=== PATIENT | male | born 1955 | race Caucasian/White ===

== ENCOUNTER 2020-08-24 10:06 | Observation (INO) ==
--- NOTE | 2020-07-23 14:08 | PAT Medication Instructions ---
Medication Instructions Date of Service July 23, 2020 Home Medications levothyroxine 88 mcg capsule 88 mcg PO QAM meloxicam 15 mg tablet 15 mg PO QAM modafinil 200 mg PO BID nutritional supplements [Benefit] 1 packet PO TID ASK your surgeon for instructions meloxicam 15 mg tablet 15 mg PO QAM DO NOT take the morning of surgery modafinil 200 mg PO BID nutritional supplements [Benefit] 1 packet PO TID Take morning of surgery With a small sip of water, OTHERWISE NOTHING TO EAT OR DRINK AFTER MIDNIGHT: levothyroxine 88 mcg capsule 88 mcg PO QAM Other Notes If you have any questions please call us at [phone] or [phone] or [phone] or [phone]
--- NOTE | 2020-07-26 13:06 | Anesthesiology Consultation ---
Date of Service July 26, 2020 Assessment & Plan (1) Encounter for pre-operative examination: COVID screening: Per assessment on 07/26: Travel screen negative, no known COVID- 19 positive contacts or current COVID-19 related symptoms. Patient was pers onally COVID positive 02/2020 ([place]). Symptoms at time of fatigue, ache, fever, loss of smell and taste > resolved. Surgeon arranging preop COVID testing. Awaiting results. Chart Review Chart Review: Acceptable Risk for Surgery and Patient seen in Pre Admission Testing Teaching & Discussion Pre-Anesthesia Teaching/Discussion Notes: Instructed NPO after midnight before surgery,except medications with 15 cc of water. Medication instructions provided according to the PAT guidelines. History Surgery Operation Date: 08/24/20 10:40 Proposed Procedures p Right Total Knee Arthroplasty - Blake Massey MD Height/Weight Height: 5 ft 11 in Weight: 71.1 kg Allergies Allergy/AdvReac Type Severity Reaction Status Date / Time No Known Allergies Allergy Verified 07/23/20 13:45 Medications Home Medications Medication Instructions Recorded Confirmed Last Taken levothyroxine 88 mcg capsule 88 mcg PO QAM 06/17/20 07/23/20 Unknown meloxicam 15 mg tablet 15 mg PO QAM 06/17/20 07/23/20 Unknown modafinil 200 mg PO BID 07/23/20 07/23/20 Unknown nutritional supplements [Benefit] 1 packet PO TID 07/23/20 07/23/20 Unknown Past Medical History Medical History Bilateral primary osteoarthritis of knee BPH (benign prostatic hyperplasia) History of COVID-19 02/2020 ([place]). Symptoms at time of fatigue, ache, fever, loss of smell and taste > resolved Hypersomnia Hypothyroidism Exercise / Class Metabolic Activity II 4-5 Yardwork/Stairs/Walk up hill (very active (no chest pain, no sob)) Past Surgical History Surgical History H/O hemorrhoids Hemorrhoids banding Hx of hernia repair Hx of tonsillectomy Hx of vasectomy Hx of vein stripping LLE Hx of wisdom tooth extraction Past Anesthesia History No Family Hx of Anesthesia Complications and Other (Vasovagal response post-op with multiple surgeries ) History of PONV No Hx of PONV and No Hx of Motion Sickness Social History Smoking Status: Never smoker Do You Dip or Chew Tobacco: No Hx Alcohol Use: No Hx Substance Use: No substance use type: does not use Review of Systems No snoring. Patient denies chest pain, shortness of breath, dyspnea on exertion, fever, chills, cough, wheezing, palpitations. Physical Exam Vital Signs VITALS BP 117/75 P 56 TEMP 98.6 SP02 98%RA RESP 16 Per patient, chronic low-normal BP/HR > asymptomatic* PHYSICAL Full cervical extension range of motion. Full TMJ range of motion. TMD 3 finger breaths Mallampati Score 2 Dentition: intact, + several crowns Lungs: clear throughout to auscultation Cardiac: regular rate and rhythm, no murmurs noted Spine: normal Carotid arteries: negative bruit Extremities: no edema Testing Laboratory Results 07/26/20 14:02 07/26/20 14:02 PT 10.6 Seconds (9.0-12.0) 07/26/20 14:02 INR 1.0 (0.9-1.1) 07/26/20 14:02 APTT 29.9 Seconds (21.0-31.0) 07/26/20 14:02 Blood Type A Positive 07/26/20 14:02 Antibody Screen NEGATIVE 07/26/20 14:02 Electrocardiogram Date: 07/26/20 SB with sinus arrhythmia at 50bpm. Rightward axis. Voltage criteria for LVH. Chest X-Ray Date: 07/26/20 FINDINGS: Lung volumes are normal. Lungs are clear. There is no pneumothorax or pleural effusion. Cardiac size is normal. Mediastinal contours are normal. There is no evidence for pulmonary edema. Incidental note is made of S shaped scol iosis of the thoracolumbar spine. IMPRESSION: No acute cardiopulmonary findings.
[2020-07-26 14:16] LABS: Basophils # (auto) 0.02 K/uL (0-0.2); Basophils % (auto) 0.4 %; Eosinophils # (auto) 0.15 K/uL (0-0.5); Eosinophils % (auto) 3.1 %; Hematocrit (blood only) 37.9 % (42-52); Hemoglobin 12.8 g/dL (14.0-18.0); Immature Granulocytes # (auto) 0.01 K/uL (0.00-0.02); Immature Granulocytes % (auto) 0.2 %; Lymphocytes # (auto) 1.41 K/uL (1.2-3.4); Lymphocytes % (auto) 28.9 %; Mean Corpuscular Hemoglobin 32.2 pg (25-34); Mean Corpuscular Hgb Conc 33.8 g/dL (32-36); Mean Corpuscular Volume 95.5 fL (80-100); Mean Platelet Volume 8.8 fL (7.4-10.4); Monocytes # (auto) 0.34 K/uL (0.11-0.59); Neutrophils # (auto) 2.95 K/uL (1.4-6.5); Neutrophils % (auto) 60.4 %; Platelet Count 217 K/uL (130-400); RDW Coefficient of Variation 13.3 % (11.5-14.5); RDW Standard Deviation 46.4 fL (36.4-46.3); Red Blood Count 3.97 M/uL (4.7-6.1); White Blood Count 4.88 K/uL (4.8-10.8)
--- NOTE | 2020-07-26 14:20 | XRay Report ---
XR chest Pre-admission PA/Lat CLINICAL HISTORY: Preoperative evaluation. COMPARISON STUDY: No previous studies for comparison. FINDINGS: Lung volumes are normal. Lungs are clear. There is no pneumothorax or pleural effusion. Car diac size is normal. Mediastinal contours are normal. There is no evidence for pulmonary edema. Incid ental note is made of S shaped scoliosis of the thoracolumbar spine. IMPRESSION: No acute cardiopulmonary findings. ACT 112: Negative or not required by law. Electronically signed by: John Abel M.D. 07/26/2020 2:18 PM
[2020-07-26 14:28] LABS: Partial Thromboplastin Ratio 1.1; Partial Thromboplastin Time 29.9 Seconds (21.0-31.0); Prothrombin Time 10.6 Seconds (9.0-12.0)
[2020-07-26 15:12] LABS: Calcium 9.3 mg/dl (8.5-10.1); Creatinine Clr Calc Pharmacy 110.2 ml/min; Est GFR (African American) 117.1; Potassium 4.3 mmol/L (3.5-5.1)
--- NOTE | 2020-07-27 14:05 | Electrocardiogram Report ---
Test Reason : Blood Pressure : / mmHG Vent. Rate : 050 BPM Atrial Rate : 050 BPM P-R Int : 202 ms QRS Dur : 094 ms QT Int : 426 ms P-R-T Axes : 073 092 072 degrees QTc Int : 388 ms Sinus bradycardia with sinus arrhythmia Rightward axis Voltage criteria for left ventricular hypertrophy Abnormal ECG No previous ECGs available Confirmed by Sander Gann ([id number]) on 07/27/2020 2:05:19 PM Referred By: Blake Massey Confirmed By:Damion Gann
--- NOTE | 2020-08-20 15:17 | History and Physical Report ---
DATE OF ADMISSION: 08/24/2020 CHIEF COMPLAINT: Bilateral knee pain and discomfort, right side greater than left. HISTORY OF PRESENT ILLNESS: The patient is a 64-year-old gentleman from [place] who presents for surgical treatment of his right knee primarily. He has got a long history of bilateral knee pain and discomfort, followed by Dr. Catalino Mayo over at [facility] for some time. The right knee has been worse than the left. Over the past 3 years, he has had multiple injections, which provided temporary relief. Pain is mostly lateral, but some global pain. He has not been able to be active due to the pain. He has a limited walking tolerance. He has trouble hiking or doing anything other than just walking on level ground. He has got some intermittent swelling. He would like to have his knees fixed. Once again, the right one is bothering more than the left. PAST MEDICAL HISTORY: 1. Hypothyroidism. 2. Low back pain/sciatica. 3. History of vasovagal reaction. PAST SURGICAL HISTORY: Includes, 1. Tonsillectomy. 2. Oral surgery. 3. Herniorrhaphy x3. 4. Vasectomy. 5. Varicose vein stripping. ALLERGIES: None. CURRENT MEDICATIONS: 1. Levothyroxine. 2. Meloxicam. SOCIAL HISTORY: Significant for a 64-year-old male. He lives in [place]. Does not smoke. No significant alcohol intake. FAMILY HISTORY: Noncontributory. REVIEW OF SYSTEMS: Negative for diabetes, neurologic problem, vascular problems or bleeding disorders. No chest pain or shortness of breath. No history of DVT or PE. No known bleeding problems. PHYSICAL EXAMINATION: GENERAL: Shows a healthy, pleasant, middle-aged male, looks to be in good health. HEENT: Benign. NECK: Supple, no lymphadenopathy. LUNGS: Clear to auscultation. HEART: Has a regular rate and rhythm. ABDOMEN: Soft, nontender, nondistended. EXTREMITIES: Grossly neurovascularly intact except as follows: Examination of the right knee reveals the patient walks without any obvious limp. He has got slight valgus alignment to his knee, which is increased with weightbearing. Small knee effusion. Range of motion 5-125. No instability. No pain with hip motion. Examination of left knee reveals fairly neutral alignment to his knee. No knee effusion. Range of motion 0-125. No instability. X-RAYS: X-rays of both knees revealed advanced right knee lateral compartment DJD. He has got complete loss of the joint space on his 45-degree flexion films. Moderate osteophyte formation. ASSESSMENT: A 64-year-old male with bilateral knee pain, degenerative joint disease, right side more severe than the left. It is affecting his quality of life and he would like to have his right knee replaced. PLAN: We will take him to the operating room and do right total knee replacement. The risks and benefits of this procedure were explained to the patient including but not limited to DVT, PE, , infection, neurological injury, vascular injury, bleeding problem, pain, limited range of motion, stiffness, failure to relieve his symptoms, incomplete relief of symptoms, need for further surgery in the future, etc. The patient understands and desires to proceed. Informed consent was obtained. As far as discharge plans, he is planning to be discharged to home using [facility] home health program. I believe his daughter is going to come and stay with him for a couple of weeks.
[~2020-08-24 10:06] MED LIST: ACETAMINOPHEN 500 MG TAB PO SCH; BUPIVACAINE 0.25% 30 ML VIAL ONE; BUPIVACAINE 0.5 % 5 MG/1 ML PF 10ML VIAL ONE; BUPIVACAINE LIPOSOME/PF 266 MG, BUPIVACAINE/EPINEPHRINE 50 ML, SODIUM CHLORIDE 0.9% 30 ... INFIL SCH; FAMOTIDINE 20 MG TAB PO SCH; GABAPENTIN 600 MG DOSE PO SCH; LACTATED RINGER'S 1,000 ML IV SCH; LR 500ML BOLUS, THEN 15ML/HR IV SCH; Scopolamine 1 MG TDSY TD SCH; TRANEXAMIC ACID 1,000 MG **IV Intra-op IV SCH; ceFAZolin 2000MG 2,000 MG/15 ML SYR IV SCH
--- NOTE | 2020-08-24 10:43 | History & Physical Bridge Note ---
Date of Service August 24, 2020 History & Physical Bridge Note I have examined the patient, reviewed the History & Physical and in the interval since the performance of the History & Physical I have noted the following changes of clinical significance: no changes noted
[2020-08-24] MEDS ORDERED: fentaNYL citrate 100 MCG/2 ML VIAL ONE (11:49)
[2020-08-24] MEDS ORDERED: MIDAZOLAM HCL 1 MG/ML 2ML VIAL ONE (11:49)
[2020-08-24] MEDS ORDERED: ATROPINE SULFATE 0.1 MG/ML 10ML SYR IV PRN (12:20)
[2020-08-24] MEDS ORDERED: ONDANSETRON INJ 2 MG/ML 2 ML VIAL IV PRN ×2 (12:20→17:13)
[2020-08-24] MEDS ORDERED: fentaNYL citrate 100 MCG/2 ML VIAL IV PRN (12:20)
[2020-08-24] MEDS ORDERED: ePHEDrine sulfate 50 MG/ML AMP IV PRN (12:20)
[2020-08-24] MEDS ORDERED: BUPIVACAINE LIPOSOME 1.3% 266 MG/20 ML VIAL ONE (12:22)
[2020-08-24] MEDS ORDERED: SODIUM CHLORIDE 0.9% PF 50 ML VIAL ONE (12:22)
[2020-08-24] MEDS ORDERED: EPINEPHrine INJ 1 MG/ML AMP ONE (12:23)
[2020-08-24] MEDS ORDERED: BUPIVACAINE 0.25% 30 ML VIAL ONE (12:23)
[2020-08-24] MEDS ORDERED: GLYCOPYRROLATE 0.2 MG/ML VIAL ONE (12:29)
[2020-08-24] MEDS ORDERED: ONDANSETRON INJ 2 MG/ML 2 ML VIAL ONE (13:17)
[2020-08-24] MEDS ORDERED: PROPOFOL IV EMULSION 10 MG/ML 20 ML VIAL IV ONE (13:17)
[2020-08-24] MEDS ORDERED: ATROPINE SULFATE 1MG/2.5ML SYR ONE (13:17)
--- NOTE | 2020-08-24 14:34 | Operative Report ---
Post Operative Report Pre & Post Diagnosis Operation Date: 08/24/20 12:30 Pre-Op Diagnosis: Right Knee Osteoarthritis Post-Op Diagnosis: Right Knee Osteoarthritis I identified the patient and participated in the time-out.: Yes Procedure Operation Date: 08/24/20 12:30 Actual Procedures p Right Total Knee Arthroplasty(Right) - Blake Massey MD Surgeon Blake Massey MD Brass Plater MARCELA Lynne Estimated Blood Loss 50 Findings Consistent with Post-Op Diagnosis Operative findings revealed advanced right knee lateral compartment DJD. He had full-thickness grade 4 [id number] disease of the lateral compartment most severe in the posterior lateral tibial plateau and the posterior aspect of his lateral femoral condyle. He did have some spotty grade 4 changes medially. He has slight valgus deformity to his knee. A moderate sized knee effusion. Fluids 1300 cc. Specimens Right knee sent for pathology. Drains None. Anesthesia Type Spinal MAC Complications none Disposition Accompanied Patient To Recovery: No Disposition: Recovery Room Indications Patient is a 64-year-old gentleman is had about a 5-year history of gradually increasing right knee pain discomfort. Has been through extensive conservative care over the past 3 years which became less successful over time. He now presents for surgical treatment. Description of Procedure Operative implants consist of: 1. Biomet Vanguard size 70 right posterior stabilized femoral component. 2 2. Biomet size 79 tibial tray. 3. 10 mm posterior stabilized polyethylene insert. 4. 31 x 8 all polypatella. The patient was taken to the operating room, identified, placed on the operating room table in the supine position but all contractors were properly padded. IV antibiotics tried by anesthesia team. Spinal anesthetic and abductor canal block had provided holding area. Johnson catheter was placed in sterile fashion. The right thigh tip was then placed in the right lower extremities and prepped and draped in usual sterile fashion. The right leg was elevated exsanguinated with use of an Esmarch and turns placed at 300 mmHg. An anterior approach to the right knee was then performed through longitudinal incision centered over the patella. Sharp dissection got through subcutaneous tissue down the extensor mechanism. A medial parapatellar arthrotomy incision was made. Some subperiosteal dissection was carried out medially. The fat pad was resected from each patella tendon. Lateral patellofemoral ligament was released. Patella subluxated laterally and the knee was flexed. The osteophytes were taken off distal femur. The ACL and PCL were then released from distal femur and the tibia subluxated anteriorly. The external tibial alignment jig was then placed in the interface the tibia and adjusted 12 mm medially. Proximal tibial cut was made remove about 4 to 5 mm of bone from the medial side. The tibia was then sized to a size 79. Attention drawn the femur. The distal femur exam with a sharp drop with intramedullary canal was suction. A right 5 degree valgus cutting guide was placed. The distal femoral cutting block was pinned in place. Distal femoral cut was made to take an additional 3 mm of bone off distal femur. The femur was then sized to a size 70. The AP cutting block was pinned parallel to the epicondylar axis which was 4 degrees of external rotation and the anterior cut, anterior chamfer, posterior cut, posterior chamfer cuts were made. The box cutting guide was placed in the just slight lateral box cut was made. The knee was brought into full extension I did do some pie crusting of the IT band in order to equalize the extension gap. The knee was flexed. The osteophytes were taken off the posterior aspect the femur. The medial lateral meniscal remnants were excised. I then did release the popliteus in order to equalize the flexion gap care. Great care was taken throughout the procedure. Intact the peroneal nerve at all times. The trial femoral component was placed. The tibial tray was pinned in maximum external rotation and the drill and stem punch used to create defect in proximal tibia for the tibial tray. The knee was then trialed the 10 mm insert fit most appropriately. Attention drawn the patella. Nipride the patella was cleaned of all soft tissues. Patella thickness measured 23 mm in thickness was cut down to 14. Was sized to a size 31 patella. The lug holes were drilled for the 31 patella. The lateral osteophyte was removed. Patella button was placed. Knee was taken through range of motion and and the patella tracked nicely with no thumbs test. Attention drawn to place the permanent components. All trial components were removed. Bone plug was placed in the distal femur to limit blood loss put a double batch Palacos G cement was mixed. A Biomet Vanguard size 70 right posterior stabilized femoral component, size 79 tibial tray, a 10 mm posterior stabilized polyethylene insert, and a 31 x 8 all polypatella were then cemented in place. Knee was brought out in full extension total cement hardened. Final cement check was then performed. Pericapsular tissues were injected with total 100 cc of combination of 20 cc of Exparel, 30 cc normal saline, 50 cc of quarter percent Marcaine with epinephrine. Patient did receive 1 g tranexamic acid. The tourniquet was then let down for final tourniquet time of 53 minutes. Hemostasis assured use electrocautery. The extensor mechanism closed with combination with #1 PDS suture #1 Vicryl suture in [id number] fashion. Extensor mechanism checked found to be intact and the subcutaneous tissue then closed with 2 Dexon suture in a buried knot fashion skin was closed skin stephan. Leg was then cleaned and dried and sterile dressing both Xeroform, 4 fours, sterile cast padding, Maximus bandage were applied. Patient then transferred to the recovery room in stable condition. Patient tolerated procedure well no complications. Eliud Lynne, my physician assistant surveyor, was present for the entire procedure. His assistance was essential and required for appropriate patient positioning, prepping and draping, surgical exposure, performing the technical details of the operation, placement the implants, closure of the wound, and placement of the sterile bandage. I attest to the content of the Intraoperative Record and any orders documented therein. Any exceptions are noted below.
--- NOTE | 2020-08-24 14:48 | XRay Report ---
RIGHT KNEE 2 VIEWS History: Right total knee arthroplasty. Degenerative arthritis. Postop. FINDINGS: The patient is status post a right total knee arthroplasty. The hardware is intact. No frac ture or dislocation. Skin stephan are in place. IMPRESSION: Right total knee arthroplasty. No evidence for hardware complication. ACT 112: Negative or not required by law. Electronically signed by: Genaro Del Rio M.D. 08/24/2020 2:46 PM
--- NOTE | 2020-08-24 15:23 | Anesthesiology Progress Note ---
Date of Service August 24, 2020 Anesthesia Post Procedure Vital Signs Vital Signs: Temp Pulse Pulse Resp BP BP Pulse Ox 08/24/20 15:10 46 L 18 103/69 98 08/24/20 15:00 55 L 14 105/65 98 08/24/20 14:50 36.1 C L 60 20 102/68 96 08/24/20 14:40 43 L 16 106/70 100 08/24/20 14:30 55 L 14 104/71 100 08/24/20 14:28 36.2 C L 50 L 12 105/64 100 08/24/20 11:32 36.5 C 50 L 16 115/76 98 08/24/20 10:28 36.5 C 51 L 16 133/82 97 Transfer of Care Handoff Completed per policy Notes Mental Status: alert / awake / arousable and participated in evaluation Nausea / Vomiting: adequately controlled Pain: adequately controlled Airway Patency, RR, SpO2: stable & adequate BP & HR: stable & adequate Hydration State: stable & adequate Neuraxial Anesthesia: was administered and sensory block is resolving Anesthetic Complications: no major complications apparent and Pt Satisfied with anesthetic care
--- NOTE | 2020-08-24 17:08 | Anesthesiology Progress Note ---
Date of Service August 24, 2020 Anesthesia Post Procedure Vital Signs Vital Signs: Temp Pulse Pulse Resp BP BP Pulse Ox 08/24/20 16:45 36.2 C L 42 L 18 110/77 99 08/24/20 16:30 38 L 16 102/68 99 08/24/20 16:15 46 L 20 119/77 100 08/24/20 16:00 42 L 20 112/77 100 08/24/20 15:50 45 L 18 113/81 96 08/24/20 15:40 52 L 18 118/84 99 08/24/20 15:30 40 L 14 97/69 L 99 08/24/20 15:20 46 L 14 101/65 98 08/24/20 15:10 46 L 18 103/69 98 08/24/20 15:00 55 L 14 105/65 98 08/24/20 14:50 36.1 C L 60 20 102/68 96 08/24/20 14:40 43 L 16 106/70 100 08/24/20 14:30 55 L 14 104/71 100 08/24/20 14:28 36.2 C L 50 L 12 105/64 100 08/24/20 11:32 36.5 C 50 L 16 115/76 98 08/24/20 10:28 36.5 C 51 L 16 133/82 97 Transfer of Care Handoff Completed per policy Notes Mental Status: alert / awake / arousable and participated in evaluation Nausea / Vomiting: adequately controlled Pain: adequately controlled Airway Patency, RR, SpO2: stable & adequate BP & HR: stable & adequate Hydration State: stable & adequate Neuraxial Anesthesia: was administered and sensory block is resolving Anesthetic Complications: no major complications apparent and Pt Satisfied with anesthetic care Notes: In preop, prior to receiving any medications, the patient was noted to have a heart rate that was dropping into the low 30s when sleeping. He reported a history of bradycardia into the 50s at baseline as well as a history of va sovagal events with anesthesia. He was pretreated in preop with atropine (0.8 mg) and did well intraop. In PACU though, his heart rate was again dropping down into the low 30s anytime the patient went to sleep. He was hemodynamically stable but complaining of feeling lightheaded and dizzy. His scopolamine patch was removed in case that was contributing to his bradycardia. Decision was made to admit the patient to telemetry for overnight cardiac monitoring and documentation. Dr. Massey is aware. Patient might require a cardiac consult if he continues to exhibit such significant bradycardia after his scopolamine patch has had more time to wear off.
[2020-08-24] MEDS ORDERED: METOCLOPRAMIDE HCL INJ 5 MG/ML 2 ML VIAL IV PRN (17:13)
[2020-08-24] MEDS ORDERED: NALOXONE HCL 0.4 MG/1 ML VIAL/CARP IV PRN (17:13)
[2020-08-24] MEDS ORDERED: ALUMINUM/MAGNESIUM SUSP 30 ML UDC PO PRN (17:13)
[2020-08-24] MEDS ORDERED: bisacodyL 10 MG SUPP PR PRN (17:13)
[2020-08-24] MEDS ORDERED: oxyCODONE HCL IR 5 MG TAB (IMMEDIATE RELEASE) PO PRN (17:13)
[2020-08-24] MEDS ORDERED: MAGNESIUM HYDROXIDE SUSP 30 ML UDC PO PRN (17:13)
[2020-08-24] MEDS ORDERED: HYDROmorphone INJ 0.5 MG/0.5 ML SYR IV PRN (17:13)
[2020-08-24] MEDS ORDERED: diphenhydrAMINE Capsule 25 MG CAP PO PRN (17:13)
[2020-08-24] MEDS ORDERED: TAMSULOSIN HCL 0.4 MG CAP PO PRN (17:13)
[2020-08-24] MEDS: KETOROLAC 30 MG/ML VIAL IV SCH ×2 (17:44→23:44)
[2020-08-24] MEDS: SODIUM CHLORIDE 0.9% 1000ML 1,000 ML IV SCH (17:44)
[2020-08-24] MEDS: Scopolamine CHECK PATCH PLACEMENT SCH ×2 (18:07→23:26)
[2020-08-24] MEDS: ASCORBIC ACID 500 MG TAB PO SCH (18:29)
[2020-08-24] MEDS ORDERED: TRANEXAMIC ACID / 0.7% NACL 1,000 MG/100 ML BAG IV SCH (20:30)
[2020-08-24] MEDS: ceFAZolin 1000MG 1,000 MG/7.5 ML SYR IV SCH (20:54)
[2020-08-24] MEDS ORDERED: NUTRITIONAL SUPPLEMENTS PO SCH (21:00)
[2020-08-24] MEDS: ASPIRIN 81 MG ECTAB PO SCH (21:06)
[2020-08-24] MEDS: SENNA 8.6 MG TAB PO SCH (21:07)
[2020-08-24] MEDS: DOCUSATE SODIUM 100 MG CAP PO SCH (21:07)
[2020-08-24] MEDS: ACETAMINOPHEN 500 MG TAB PO SCH (21:08)
[2020-08-24] MEDS: TAPENTADOL HCL ER 50 MG TABCR PO SCH (21:08)
[2020-08-24] MEDS: modafiniL 100 MG TAB PO SCH (21:22)
[2020-08-25] MEDS: SODIUM CHLORIDE 0.9% 1000ML 1,000 ML IV SCH (04:28)
[2020-08-25] MEDS: ceFAZolin 1000MG 1,000 MG/7.5 ML SYR IV SCH (04:39)
[2020-08-25] MEDS: KETOROLAC 30 MG/ML VIAL IV SCH ×4 (06:22→23:42)
[2020-08-25] MEDS: ACETAMINOPHEN 500 MG TAB PO SCH ×3 (06:22→21:39)
[2020-08-25] MEDS: LEVOTHYROXINE SODIUM 88 MCG TABLET PO SCH (06:22)
[2020-08-25 06:26] LABS: Hematocrit (blood only) 34.1 % (42-52); Hemoglobin 11.6 g/dL (14.0-18.0); Mean Corpuscular Hemoglobin 32.4 pg (25-34); Mean Corpuscular Volume 95.3 fL (80-100); Mean Platelet Volume 9.1 fL (7.4-10.4); Platelet Count 200 K/uL (130-400); RDW Coefficient of Variation 13.1 % (11.5-14.5); Red Blood Count 3.58 M/uL (4.7-6.1); White Blood Count 9.15 K/uL (4.8-10.8)
[2020-08-25 06:58] LABS: BUN Creatinine Ratio 26.8 (10-20); Est GFR (African American) 119.3 ml/min; Est GFR (Non-African American) 102.9 ml/min
[2020-08-25] MEDS ORDERED: dexAMETHasone 10 MG in SYRINGE 0 ML IV SCH (08:00)
[2020-08-25] MEDS: Scopolamine CHECK PATCH PLACEMENT SCH ×3 (09:02→23:41)
[2020-08-25] MEDS: ASCORBIC ACID 500 MG TAB PO SCH ×2 (09:05→17:39)
[2020-08-25] MEDS: ASPIRIN 81 MG ECTAB PO SCH ×2 (09:05→21:37)
[2020-08-25] MEDS: MULTIVITAMIN TAB PO SCH (09:07)
[2020-08-25] MEDS: DOCUSATE SODIUM 100 MG CAP PO SCH ×2 (09:07→21:37)
[2020-08-25] MEDS: modafiniL 100 MG TAB PO SCH ×2 (09:10→21:38)
[2020-08-25] MEDS: TAPENTADOL HCL ER 50 MG TABCR PO SCH ×2 (09:25→21:39)
--- NOTE | 2020-08-25 18:15 | Progress Notes ---
DATE: 08/25/2020 SUBJECTIVE: A 64-year-old gentleman postop day 1 from right knee replacement. He is doing pretty well. He is having some modest amounts of pain at times, but does okay with pain pills. No chest pain or shortness of breath. He has got a little dizzy when he gets up from time to time. No chest pain or shortness of breath. OBJECTIVE: VITAL SIGNS: Temperature 37.4. Vital signs are stable. GENERAL: Shows a pleasant, thin, healthy, middle-aged male. He is sitting up and talking to a relative. He looks quite comfortable. LUNGS: Clear to auscultation. HEART: Has a regular rate and rhythm. ABDOMEN: Soft, nontender, nondistended. EXTREMITIES: Grossly neurovascularly intact except as follows: Examination of the right leg reveals the leg to be well aligned. He can dorsiflex and plantarflex his foot appropriately. He is neurologically intact. Good distal pulse. LABORATORY DATA: Hemoglobin 11.6. Hematocrit 34.1. Electrolytes are stable. ASSESSMENT: A 64-year-old gentleman postoperative day 1 from right knee replacement, doing reasonably well. He is getting a little lightheaded from time to time when he gets up, but nothing really about it. Otherwise, his pain is controlled. He is neurologically intact. PLAN: 1. DVT prophylaxis including thigh-high TEDs, SCDs, and aspirin twice a day. 2. PT/OT. Weightbear as tolerated. Right total knee protocol. 3. Pain control, doing well with current pain regimen. 4. Disposition: He is not feeling comfortable to go home today and would like to wait and possibly go home tomorrow depending on how he does in therapy. He will be discharged to home with home health.
[2020-08-25] MEDS: SENNA 8.6 MG TAB PO SCH (21:38)
[2020-08-26] MEDS: ACETAMINOPHEN 500 MG TAB PO SCH ×2 (05:05→13:57)
[2020-08-26] MEDS: KETOROLAC 30 MG/ML VIAL IV SCH ×2 (05:06→11:44)
[2020-08-26] MEDS: LEVOTHYROXINE SODIUM 88 MCG TABLET PO SCH (05:06)
--- NOTE | 2020-08-26 07:58 | Progress Notes ---
DATE: 08/26/2020 SUBJECTIVE: A 64-year-old gentleman postop day 2 from right knee replacement. He is doing pretty well. Pain is controlled. He is getting around reasonably well. No chest pain or shortness of breath. OBJECTIVE: VITAL SIGNS: Temperature 37.0. Vital signs stable. GENERAL: Shows a pleasant, middle-aged male. He has been walking around in his room with a walker. EXTREMITIES: Examination of the right leg reveals the dressing to be in place. It is clean, dry, and intact. He can dorsiflex and plantarflex his foot appropriately. He can do a straight leg raise. ASSESSMENT: A 64-year-old gentleman postop day 2 from a right knee replacement. He is doing reasonably well. His pain is controlled. He is neurologically intact. PLAN: 1. DVT prophylaxis including thigh-high TEDs, SCDs, and aspirin twice a day. 2. PT/OT. Weight bear as tolerated. Right total knee protocol. 3. Pain control, doing okay with current pain regimen. 4. Disposition: Plan to discharge home with some home health later today.
[2020-08-26] MEDS: ASCORBIC ACID 500 MG TAB PO SCH (09:12)
[2020-08-26] MEDS: TAPENTADOL HCL ER 50 MG TABCR PO SCH (09:12)
[2020-08-26] MEDS: ASPIRIN 81 MG ECTAB PO SCH (09:12)
[2020-08-26] MEDS: MULTIVITAMIN TAB PO SCH (09:12)
[2020-08-26] MEDS: modafiniL 100 MG TAB PO SCH (09:12)
[2020-08-26] MEDS: DOCUSATE SODIUM 100 MG CAP PO SCH (09:14)
[2020-08-26] MEDS: Scopolamine CHECK PATCH PLACEMENT SCH (09:17)
--- NOTE | 2020-08-30 07:08 | Discharge Summary ---
Date of Service August 30, 2020 Discharge Data Procedures Performed Operation Date: 08/24/20 12:30 Actual Procedures p Right Total Knee Arthroplasty(Right) - Blake Massey MD Hospital Course (1) Status post total right knee replacement: This patient is a 64 year old male admitted on 08/24/20 and underwent total knee arthroplasty. He tolerated the procedure well and there were no complications. Transferred to the PACU post op and later to the orthopedic floor for further care. He was given ancef for antibiotic prophylaxis. He was also given DINA stockings, SCDs, and aspirin for DVT prophylaxis. Hemoglobin, hematocrit, and vital signs were monitored during his hospital stay and remained stable. Did not require any blood transfusions. There were no complications during his hospital stay. By post op day #2 the patient was tolerating a regular diet, pain was reasonably controlled with oral pain medicine, and he was participating in physical therapy. On post op day #2 the patient was discharged home and set up with home health care. He was given printed discharge instructions including prescriptions for extra strength tylenol, aspirin, and oxycodone. Continue physical therapy, weight bearing as tolerated. Continue DINA stockings. Follow up approximately 2 weeks post op or sooner if there are problems or concerns. Coding Level of Care Code None Diagnoses Status post total right knee replacement Z96.651
== END 2020-08-26 15:15 | disposition home health service (06) ==
LOC: ASU 10:06 → 2W 14:32 → INTOOBSV 14:32 → 2W 23:29

== ENCOUNTER 2023-01-05 06:28 | Observation (INO) ==
--- NOTE | 2022-11-23 12:28 | PAT Medication Instructions ---
Medication Instructions Date of Service November 23, 2022 Home Medications Medication Instructions Recorded Ever Walker #1 ea 09/10/20 amoxicillin 500 mg tablet 2,000 mg PO ONCE #4 tabs 03/06/22 levothyroxine 88 mcg capsule 88 mcg PO QAM meloxicam 15 mg tablet 15 mg PO QAM amoxicillin 500 mg tablet 2,000 mg PO ONCE ascorbic acid (vitamin C) 500 mg tablet (Vitamin C) 500 mg PO QAM Continue as directed amoxicillin 500 mg tablet 2,000 mg PO ONCE (if needed) ASK your surgeon for instructions meloxicam 15 mg tablet 15 mg PO QAM DO NOT take the morning of surgery ascorbic acid (vitamin C) 500 mg tablet (Vitamin C) 500 mg PO QAM Take morning of surgery With a small sip of water, OTHERWISE NOTHING TO EAT OR DRINK AFTER MIDNIGHT: levothyroxine 88 mcg capsule 88 mcg PO QAM Other Notes If you have any questions please call us at [phone] or [phone] or [phone] or [phone]
--- NOTE | 2022-11-29 09:42 | Anesthesiology Consultation ---
Date of Service November 29, 2022 Assessment & Plan (1) Encounter for pre-operative examination: Chart Review Chart Review: Acceptable Risk for Surgery and Patient seen in Pre Admission Testing - Due to lack of motivation from post operative bradycardia and syncope in the past with surgeries- patient is NOT an ideal OPJ candidate Per PAT appt on 11/29/22, no recent Covid exposures, Covid related symptoms, or recent Covid positive tests. Will leave to surgeon's discretion if preop Covid testing needed Teaching & Discussion Pre-Anesthesia Teaching/Discussion Notes: Instructed NPO after midnight before surgery,except medications with 15 cc of water. Medication instructions provided according to the PAT guidelines. History Surgery Operation Date: 01/05/23 13:00 Proposed Procedures p Right Reverse Total Shoulder Arthroplasty - Rigo Desai DO Height/Weight Height: 5 ft 11 in Weight: 69.2 kg Allergies Allergy/AdvReac Type Severity Reaction Status Date / Time No Known Allergies Allergy Verified 11/22/22 12:58 Medications Home Medications Medication Instructions Recorded Confirmed Last Taken levothyroxine 88 mcg capsule 88 mcg PO QAM 06/17/20 11/22/22 08/24/20 06:30 meloxicam 15 mg tablet 15 mg PO QAM 06/17/20 11/22/22 08/13/20 Wheeled Walker #1 ea 09/10/20 11/14/22 Unknown amoxicillin 500 mg tablet 2,000 mg PO ONCE #4 tabs 03/06/22 11/22/22 Unknown ascorbic acid (vitamin C) 500 mg 500 mg PO QAM 11/22/22 11/22/22 Unknown tablet (Vitamin C) Past Medical History Medical History (Updated 11/29/22 @ 14:42 by Ana Paige PA-C) BPH (benign prostatic hyperplasia) History of COVID-19 02/2020 (Thanksgiving). Symptoms at time of fatigue, ache, fever, loss of smell and taste > resolved 01/2022- no hospitalization- symptoms resolved Hypothyroidism Osteoarthritis Slow to wake up after anesthesia and has a low heart rate after anesthesia. Prone to passing out- syncope after varicose vein procedure and hernia repair post op Exercise / Class Metabolic Activity II 4-5 Yardwork/Stairs/Walk up hill (one flight of stairs - no chest pain or SOB ) Past Family History Family History Other No family history of adverse response to anesthesia Past Surgical History Surgical History H/O hemorrhoids Hemorrhoids banding Hx of colonoscopy Hx of hernia repair Hx of tonsillectomy Hx of vasectomy Hx of vein stripping LLE Hx of wisdom tooth extraction Status post total right knee replacement Past Anesthesia History No Hx of Anesthesia Complications (with exception to low heart rate post op (had to be monitored on telemetry after TKA per patient) and post op syncope (vasovagal per patient) with varicose vein procedure and hernia repair ) and No Family Hx of Anesthesia Complications History of PONV No Hx of PONV and No Hx of Motion Sickness Social History Smoking Status: Never smoker Do You Dip or Chew Tobacco: No Hx Alcohol Use: No Hx Substance Use: No substance use type: does not use Review of Systems - Snoring and witnessed apnea- hx of sleep apnea with home study- did in office/formal sleep study- did NOT have SUAD - Chronic bradycardia at rest- denies dizziness, syncope, or presyncope symptoms Patient denies chest pain, shortness of breath, dyspnea on exertion, reflux, cough, wheezing, palpitations. No hx of seizures, stroke, ND. No hx of blood clots or blood transfusions Physical Exam Vital Signs VITALS BP 128/82 P 51 TEMP 97.8 SP02 98% RESP 16 Constitutional no acute distress ENMT Mouth: no TMJ clicking Thyromental Distance: > or= 3.5 Finger Breadths (4.0) Mallampati Class: II Crowns to molars and side teeth Neck neck extension not limited Respiratory normal respiratory effort; no respiratory distress Auscultation: lungs clear to auscultation bilaterally; no wheezes Cardiovascular Rate/Rhythm: regular rate and regular rhythm Heart Sounds: no murmur Vessels: no carotid bruit Musculoskeletal Spine: no pain with cervical ROM Extremities: extremities normal to inspection Psychiatric Orientation: alert Lab Results Anesthesia Preop Results Results Anesthesia Widget: WBC 4.37 K/ul (4.8-10.8) L 11/29/22 Hgb 13.1 g/dl (14.0-18.0) L 11/29/22 Hct 38.6 % (42.0-52.0) L 11/29/22 Plt 224 K/uL (130-400) 11/29/22 Na 141 mmol/L (136-145) 11/29/22 K 4.4 mmol/L (3.5-5.1) 11/29/22 Cl 105 mmol/L (98-107) 11/29/22 CO2 32 mmol/L (21-32) 11/29/22 BUN 13 mg/dl (6-23) 11/29/22 Creat 0.71 mg/dl (0.6-1.4) 11/29/22 Glucose Level 85 mg/dl (70-99(Fasting)) 11/29/22 PT 11.8 Seconds (9.0-12.0) 11/29/22 PTT 32.6 Seconds (21.0-31.0) H 11/29/22 INR 1.1 (0.9-1.1) 11/29/22 Blood Type A Positive 11/29/22 Antibody Screen NEGATIVE 11/29/22 Testing Electrocardiogram Date: 11/29/22 SB with 1st degree AVB at 48bpm Minimal voltage criteria for LVH, may be normal variant (Sokolow-Mccormick) When compared to EKG from July 26, 2020- no significant change was found per cardio Chest X-Ray Date: 11/29/22 Findings: + NAD FINDINGS: Cardiac mediastinal and hilar silhouettes are within normal limits. No pneumothorax, pleural effusion, airspace consolidation or pulmonary edema. Sigmoidal thoracolumbar scoliosis. The bones appear grossly intact.
--- NOTE | 2023-01-04 11:30 | History & Physical Report ---
Date of Service January 04, 2023 Assessment & Plan (1) Osteoarthritis of right shoulder: We will proceed with a right reverse shoulder arthroplasty. Postoperatively he will be placed in a sling and kept overnight in the hospital for postop medical management. He plans to go to [facility] physical therapy upon discharge. History of Present Illness Chief Complaint: Severe osteoarthritis of the right shoulder. Primary Care Provider: Blake Kumari MD Julius is a pleasant 67-year-old male who has been dealing with chronic increasing right shoulder pain. He has been seeing physical therapy. They had trouble with motion and crepitus of his shoulder. X-rays and clinical examination been diagnostic for severe osteoarthritis of the right shoulder. After failing conservative treatment, he has elected proceed with a right reverse shoulder arthroplasty. Allergies Allergy/AdvReac Type Severity Reaction Status Date / Time No Known Allergies Allergy Verified 11/22/22 12:58 Home Medications Medication Instructions Recorded Confirmed Type levothyroxine 88 mcg capsule 88 mcg PO QAM 06/17/20 11/22/22 History meloxicam 15 mg tablet 15 mg PO QAM 06/17/20 11/22/22 History Wheeled Walker #1 ea 09/10/20 11/14/22 Rx amoxicillin 500 mg tablet 2,000 mg PO ONCE #4 tabs 03/06/22 11/22/22 Rx ascorbic acid (vitamin C) 500 mg 500 mg PO QAM 11/22/22 11/22/22 History tablet (Vitamin C) Past Med/Surg History Medical History BPH (benign prostatic hyperplasia) History of COVID-19 02/2020 (Thanksgiving). Symptoms at time of fatigue, ache, fever, loss of smell and taste > resolved 01/2022- no hospitalization- symptoms resolved Hypothyroidism Osteoarthritis Slow to wake up after anesthesia and has a low heart rate after anesthesia. Prone to passing out- syncope after varicose vein procedure and hernia repair post op Surgical History H/O hemorrhoids Hemorrhoids banding Hx of colonoscopy Hx of hernia repair Hx of tonsillectomy Hx of vasectomy Hx of vein stripping LLE Hx of wisdom tooth extraction Status post total right knee replacement Family History Other No family history of adverse response to anesthesia Social History Smoking Status: Never smoker Second Hand Exposure: No; Do You Dip or Chew Tobacco: No; Tobacco Cessation Education Requested by Patient: No Hx Alcohol Use: No Hx Substance Use: No Preferred Language: Ghanaian Communication Ability: Effective Visual Impairment: No Limitations 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 Physical Exam On physical examination of right shoulder, he only has about 30 degrees forward elevation 30 degrees of abduction. He has 3 out of 5 motor strength throughout. Severe crepitus with range of motion.. Constitutional WD/WN, vitals as above Eyes PERRL, conjunctivae normal, anicteric sclerae ENMT external ear and nose normal, oropharynx normal Neck trachea midline, no thyromegaly Respiratory normal respiratory effort, lungs clear to auscultation Cardiovascular RRR, no murmur, no edema Gastrointestinal (Abdomen) normal bowel sounds, soft, nontender, no hepatosplenomegaly Skin no rashes, warm and dry Psychiatric A+Ox3, euthymic affect Results & Data Results & Data Laboratory Results . Diagnostic Findings X-rays of the right shoulder show advanced osteoarthritis with joint space narrowing, osteophyte formation, and [id number] articulation. PG Care Time/CCT Total # of Minutes Spent Total Time Spent with Patient: Total time spent is greater than 50% in coordination of care (as documented) at patient's floor/unit and/or counseling patient: Coding Level of Care Code None Diagnoses Osteoarthritis of right shoulder M19.011
[~2023-01-05 06:28] MED LIST changes: -BUPIVACAINE 0.25% 30 ML VIAL ONE; -BUPIVACAINE 0.5 % 5 MG/1 ML PF 10ML VIAL ONE; -BUPIVACAINE LIPOSOME/PF 266 MG, BUPIVACAINE/EPINEPHRINE 50 ML, SODIUM CHLORIDE 0.9% 30 ... INFIL SCH; +GABAPENTIN 300 MG CAP PO SCH; -GABAPENTIN 600 MG DOSE PO SCH; -LACTATED RINGER'S 1,000 ML IV SCH; +LR 15ML/HR IV SCH; -LR 500ML BOLUS, THEN 15ML/HR IV SCH; +LR 60ML/HR IV SCH; +ORTHO JOINT MIX INFIL SCH; -Scopolamine 1 MG TDSY TD SCH; +TRANEXAMIC ACID 1,000 MG **IV Pre-op IV SCH; +dexAMETHasone 4 MG TAB PO SCH
[2023-01-05] MEDS ORDERED: BUPIVACAINE 0.5 % 5 MG/1 ML PF 10ML VIAL ONE (06:32)
--- NOTE | 2023-01-05 06:35 | History & Physical Bridge Note ---
Date of Service January 05, 2023 History & Physical Bridge Note I have examined the patient, reviewed the History & Physical and in the interval since the performance of the History & Physical I have noted the following changes of clinical significance: no changes noted
[2023-01-05] MEDS ORDERED: KETAMINE 50 MG/5 ML SYRINGE ONE (06:46)
[2023-01-05] MEDS ORDERED: MIDAZOLAM HCL 1 MG/ML 2ML VIAL ONE (06:46)
[2023-01-05] MEDS ORDERED: ePHEDrine sulfate 50 MG/ML AMP IV PRN (07:06)
[2023-01-05] MEDS ORDERED: ONDANSETRON INJ 2 MG/ML 2 ML VIAL IV PRN ×2 (07:06→10:22)
[2023-01-05] MEDS ORDERED: ATROPINE SULFATE 0.1 MG/ML 10ML SYR IV PRN (07:06)
[2023-01-05] MEDS ORDERED: fentaNYL citrate PF 100 MCG/2 ML VIAL IV PRN (07:06)
[2023-01-05] MEDS ORDERED: ORTHO JOINT ANESTHETIC ONE (07:42)
[2023-01-05] MEDS ORDERED: PROPOFOL IV EMULSION 10 MG/ML 20 ML VIAL IV ONE (08:05)
[2023-01-05] MEDS ORDERED: KETOROLAC 30 MG/ML VIAL ONE (08:05)
[2023-01-05] MEDS ORDERED: ePHEDrine sulfate 50 MG/5 ML SYR ONE (08:05)
[2023-01-05] MEDS ORDERED: GLYCOPYRROLATE 0.2 MG/ML VIAL ONE (08:05)
[2023-01-05] MEDS ORDERED: ONDANSETRON INJ 2 MG/ML 2 ML VIAL ONE (08:05)
[2023-01-05] MEDS ORDERED: LIDOCAINE 2% 2 ML VIAL/AMP(20MG/ML) INFIL ONE (08:05)
--- NOTE | 2023-01-05 08:59 | Operative Report ---
PG Post Operative Report Pre & Post Diagnosis Operation Date: 01/05/23 08:00 Pre-Op Diagnosis: Degenerative joint disease Right Shoulder with tendinopathy long head of the biceps tendon Post-Op Diagnosis: Degenerative joint disease Right Shoulder with tendinopathy long head of the biceps tendon I identified the patient and participated in the time-out.: Yes Procedure Operation Date: 01/05/23 08:00 Actual Procedures p Right Reverse Total Shoulder Arthroplasty(Right) with open biceps tenodesis as a distinct and separate procedure (modifier 59)- Rigo Desai DO Surgeon Rigo Desai DO Pictures Editor Rigo Martinez PA-C Estimated Blood Loss 200 Findings Consistent with Post-Op Diagnosis Specimens Right humeral head Description of Procedure A CPT code modifier 59: The long head of the biceps tendon was enlarged and inflamed consistent with tendinopathy. A tenodesis was opted. This was a separate and distinct portion of the procedure. For these reasons, a CPT code modifier 59 will be added to this case. Implants used: I used a [employer] Comprehensive reverse total shoulder arthroplasty system with a size 16 press fit micro humeral stem, a +3 offset humeral tray and a standard humeral bearing, a 25 mm large augment baseplate with a 6.5 mm central screw and superior, posterior and inferior locking screws, and a size 40 mm eccentric glenosphere. Julius arrived at [facility] for the above procedure. He was seen in the preoperative holding area and the operative extremity was identified and signed. He was given a preoperative antibiotic, TXA, and an interscalene nerve block. He was taken back to the operating room, laid on table in supine position, and put under general anesthesia. He was then put into the beachchair position. The shoulder was then prepped and draped in sterile fashion. A timeout was done and the patient and the operative extremity was properly identified. A deltopectoral approach was used. Dissection was taken down through the fascia and the deltoid was retracted laterally and the conjoined tendon was retracted medially. The anterior shoulder was exposed. The biceps groove was opened up and the biceps tendon was examined extensively. The biceps tendon demonstrated enlargement and inflammatory changes consistent with longstanding inflammation in the context of osteoarthritis and cuff arthropathy. The long head of the biceps tendon was then tenodesed to the upper border of the pectoralis major. This was a separate and distinct portion of the procedure. The subscapularis was then directly released off the lesser tuberosity with a peel technique. The inferior capsule was released and the humeral head was dislocated. A canal finding reamer was sent down the center of the humeral canal. Sequential reaming up to a size 16 reamer was done. Off that reamer, a proximal humeral resection guide was placed. The proximal humerus was resected at 135 of inclination and 25 of retroversion. Osteophytes were then removed and the glenoid was exposed. Time was spent doing a complete capsular and labral release. A [employer] Signature One guide was then attached onto the anterior rim of the glenoid. A 3.2 mm Steinmann pin was then placed in the reverse total shoulder arthroplasty hole. The glenoid baseplate was then reamed. The final size 25 mm large augment baseplate was then impacted in the place. A 6.5 mm central screw was then placed followed by superior, posterior and inferior locking screws. A 40 mm eccentric glenosphere was then impacted into place. Surrounding soft tissues were then injected with 100 cc an orthopedic pain control cocktail. The proximal humerus was then exposed. Sequential broaching of the humerus up to a size 16 broach was done. Off that broach a +3 offset humeral tray was trialed. The shoulder was then reduced, brought through a full range of motion, and felt to be stable. The shoulder was then dislocated and the broach was removed. The final size 16 micro press-fit humeral stem was then impacted into place. A standard humeral bearing was then snapped onto a +3 offset humeral tray. The humeral tray was then impacted onto the humeral stem. The shoulder was once again reduced, brought through a full range of motion, and felt to be stable. The subscapularis was then tenodesed back to the lesser tuberosity with transosseous FiberWire sutures and side to side sutures with the arm in 45 of external rotation. A dilute betadyne lavage was then done for 3 minutes. The joint was then irrigated with normal saline solution. Hemostasis was obtained. The interval was closed with 2-0 Vicryl suture. The skin was then closed with 2-0 Vicryl and stephan. A Silverlon dressing was placed and the arm was rested in a regular arm sling. He was then extubated and transferred to a hospital bed. He taken to the postanesthesia care unit in stable condition. He tolerated the procedure well. Rigo Martinez PA-C, was present for the entire procedure. He was critical for patient positioning, prepping, draping, retraction exposure, wound closure and application of sterile dressing. I attest to the content of the Intraoperative Record and any orders documented therein. Any exceptions are noted below.
--- NOTE | 2023-01-05 10:06 | Anesthesiology Progress Note ---
Date of Service January 05, 2023 Anesthesia Post Procedure Vital Signs Vital Signs: Temp Pulse Pulse Resp BP Pulse Ox O2 Del Method 01/05/23 10:00 97.3 F L 55 L 16 109/70 95 Nasal Cannula 01/05/23 09:50 48 L 13 101/72 97 Oxymask 01/05/23 09:40 52 L 16 102/75 97 Oxymask 01/05/23 09:30 55 L 15 98/71 L 99 Oxymask 01/05/23 09:20 55 L 21 111/70 97 Oxymask 01/05/23 09:12 97.2 F L 57 L 14 100/67 95 Oxymask 01/05/23 06:57 97.7 F 45 L 18 131/75 100 Room Air O2 Flow Rate 01/05/23 10:00 2 01/05/23 09:50 6 01/05/23 09:40 6 01/05/23 09:30 6 01/05/23 09:20 11 01/05/23 09:12 11 01/05/23 06:57 Transfer of Care Handoff Completed per policy Notes Mental Status: alert / awake / arousable and participated in evaluation Patient Amnestic to Procedure: Yes Nausea / Vomiting: adequately controlled Pain: adequately controlled Airway Patency, RR, SpO2: stable & adequate BP & HR: stable & adequate Hydration State: stable & adequate Anesthetic Complications: no major complications apparent and Pt Satisfied with anesthetic care
[2023-01-05] MEDS ORDERED: NALOXONE HCL 0.4 MG/1 ML VIAL/CARP IV PRN (10:22)
[2023-01-05] MEDS ORDERED: bisacodyL 10 MG SUPP PR PRN (10:22)
[2023-01-05] MEDS ORDERED: MAGNESIUM HYDROXIDE SUSP 30 ML UDC PO PRN (10:22)
[2023-01-05] MEDS ORDERED: oxyCODONE HCL IR 5 MG TAB (IMMEDIATE RELEASE) PO PRN (10:22)
[2023-01-05] MEDS ORDERED: HYDROmorphone INJ 0.5 MG/0.5 ML SYR IV PRN (10:22)
[2023-01-05] MEDS ORDERED: METOCLOPRAMIDE HCL INJ 5 MG/ML 2 ML VIAL IV PRN (10:22)
--- NOTE | 2023-01-05 10:23 | XRay Report ---
XR shoulder RT min 2V routine CLINICAL HISTORY: Post shoulder surgery COMPARISON STUDY: None. FINDINGS: Status post reverse right total shoulder arthroplasty. The hardware appears intact. No acut e fracture or dislocation. Skin stephan are in place. Right basilar linear densities favor subsegment al atelectasis. IMPRESSION: Status post reverse right total shoulder arthroplasty. No evidence for hardware complica tion. ACT 112: Negative or not required by law. Electronically signed by: Genaro Del Rio M.D. 01/05/2023 10:22 AM
[2023-01-05] MEDS: KETOROLAC TROMETHAMINE 15 MG/ML VIAL IV SCH ×3 (11:29→23:56)
[2023-01-05] MEDS: SODIUM CHLORIDE 0.9% 1,000 ML IV SCH ×2 (11:31→21:02)
[2023-01-05] MEDS: ACETAMINOPHEN 500 MG TAB PO SCH ×2 (13:19→21:00)
[2023-01-05] MEDS: ceFAZolin 2000MG 2,000 MG/15 ML SYR IV SCH ×2 (15:56→23:56)
[2023-01-05] MEDS ORDERED: SENNA 8.6 MG TAB PO SCH (21:00)
[2023-01-05] MEDS: DOCUSATE SODIUM 100 MG CAP PO SCH (21:00)
[2023-01-06] MEDS: KETOROLAC TROMETHAMINE 15 MG/ML VIAL IV SCH (05:28)
[2023-01-06] MEDS: ACETAMINOPHEN 500 MG TAB PO SCH (05:28)
[2023-01-06] MEDS ORDERED: LEVOTHYROXINE SODIUM 88 MCG TABLET PO SCH (06:30)
[2023-01-06] MEDS ORDERED: dexAMETHasone 4 MG TAB PO SCH (08:00)
[2023-01-06] MEDS: DOCUSATE SODIUM 100 MG CAP PO SCH (08:11)
--- NOTE | 2023-01-06 08:24 | Orthopedic Progress Note ---
Date of Service January 06, 2023 Assessment & Plan (1) Status post reverse total replacement of right shoulder: Overall he is doing very well. He is not having much pain in the right shoulder. He will be seen by physical therapy today for ambulation and range of motion exercises. He can be discharged home later today. He will follow-up orthopedics in 2 weeks. Bakari Madrid was seen and examined at bedside this morning. Overall is doing very well. He is not having much pain in the right shoulder. He was able to get some sleep last night. He has no complaints.. Review of Systems All systems reviewed & are unremarkable except as noted in HPI & below. Physical Exam On physical examination of the right shoulder, the dressing is clean and dry. He has motion of his hand and his wrist. He is wearing his sling as instructed.. Results & Data Results & Data Laboratory Results . Diagnostic Findings Postoperative x-rays of the right shoulder show the prosthesis to be in anatomic alignment without any evidence of fracture complication, or loosening.. PG Care Time/CCT Total # of Minutes Spent Total Time Spent with Patient: Total time spent is greater than 50% in coordination of care (as documented) at patient's floor/unit and/or counseling patient: Coding Level of Care Code 01443 Post Operative Follow-Up Diagnoses Status post reverse total replacement of right shoulder Z96.611
--- NOTE | 2023-01-06 08:25 | Discharge Summary ---
Date of Service January 06, 2023 Admission HPI (Per Admitting) Julius is a pleasant 67-year-old male who has been dealing with chronic increasing right shoulder pain. He has been seeing physical therapy. They had trouble with motion and crepitus of his shoulder. X-rays and clinical examination been diagnostic for severe osteoarthritis of the right shoulder. After failing conservative treatment, he has elected proceed with a right reverse shoulder arthroplasty. Admission Exam (Per Admitting) On physical examination of right shoulder, he only has about 30 degrees forward elevation 30 degrees of abduction. He has 3 out of 5 motor strength throughout. Severe crepitus with range of motion.. Principal Diagnosis Same as "Discharge Diagnosis" noted below under Discharge Instructions. Discharge Exam On physical examination of the right shoulder, the dressing is clean and dry. He has motion of his hand and his wrist. He is wearing his sling as ins tructed.. Discharge Data Procedures Performed Operation Date: 01/05/23 08:00 Actual Procedures p Right Reverse Total Shoulder Arthroplasty(Right) - Rigo Desai DO Ordered Studies 01/05/23 05:00 US - OR guided needle placemen Routine Hospital Course (1) Status post reverse total replacement of right shoulder: On January 05, 2023 Julius arrived at [facility] and underwent a right reverse shoulder arthroplasty without complication. He had a general anesthetic and a right interscalene nerve block. Postoperatively he was placed in a sling and transferred to the general orthopedic floors. His hospital course was uneventful. On postop day #1, his vital signs were stable and his pain was well controlled. He was able to participate well with physical therapy doing ambulation and range of motion exercises. He was then discharged home. He will follow-up with orthopedics in 2 weeks. PG Care Time/CCT Total # of Minutes Spent Total Time Spent with Patient: Total time spent is greater than 50% in coordination of care (as documented) at patient's floor/unit and/or counseling patient: Discharge Plan Discharge Items Patient Disposition: Home - Home Health Services Reason For Visit: DJD Right Shoulder Discharge Diagnosis: Right reverse shoulder replacement Activity: Per Instructions section Non-emergency contact: Surgeon Call non-emergency contact if: your wound has increased redness and your wound has increased drainage Follow-up/Referrals: Blake Kumari MD [Primary Care Provider] - Diet: Regular Addtl Attending Provider Instructions: Activity and Therapy Recommendations: * If you are using [facility] then therapy will be provided at your home until they feel you have accomplished all of your goals. * If you are using [facility] then Physical Therapy will be provided until they feel you are ready to start Outpatient Physical Therapy. * If you are not using home therapy then Outpatient Physical Therapy should start about 3-5 days from your day of surgery. Therapy will last about 8-12 weeks * Wear your sling for 3 weeks, unless otherwise instructed. You may remove your sling to shower and to dress, but otherwise, you should be in your sling at all times, including while sleeping * The shoulder replacement is very stable and you can use your hand while in the sling * You were shown a series of exercises in the hospital. Do these exercises daily including the exercises you were shown in physical therapy. Medications: * Narcotic You will likely be sent home from the hospital with a prescription for the narcotic pain medication that worked best throughout your stay. * Other medications may be prescribed for specific circumstances. If you have any questions, please call the office at . * Resume previous home medications unless otherwise instructed Dressing Care: Leave the Silverlon dressing in place for 7 days. After 7 days you may remove the dressing. If the incision is not draining then you may leave the stephan open to air. If there is a little bit of drainage or if the stephan are getting stuck on your clothing then cover the incision with a dry dressing. The stephan will be removed at your 2 week follow-up appointment. Showering: You may shower with the Silverlon dressing in place. Do not let the shower spray hit the dressing directly. Pat the Silverlon dressing dry. If the dressing becomes wet underneath, then simply remove the dressing. Keep the incision dry until you are 7 days out from the day of surgery. After 7 days you may remove the Silverlon dressing and shower with the stephan exposed. Let soapy water run over the stephan and pat them dry. Do not scrub or soak the incision. Things To Watch For: * Drainage from the incision site that occurs more than one week after your surgery. * Increased redness at the incision site. * Fever above 102 degrees Fahrenheit. * Unusual chest pain or shortness of breath. * Call [facility] at with any of the above problems Follow-Up Visit: Follow-up with Dr. Desai's PA (Rigo Martinez) 2-3 weeks after your day of surgery. He will remove your stephan and answer any questions. If you have any additional questions or concerns, Dr Desai is usually in the office at the same time and will be available An appointment was probably scheduled when you signed-up for surgery in the office. If you have any questions call More detailed instructions as well as Frequently Asked Questions were provided in a folder by our office when you signed-up for surgery. Please review these instructions when you get home. If you have any further questions or concerns, please feel free to call the office at [phone] Pending Studies at Discharge: No Stand-Alone Forms: [facility], Smoking Cessation Medications and DC Order Prescriptions: New oxycodone 5 mg Tablet 5 mg PO Q4H PRN (Reason: pain) Qty: 20 0RF Continued (DME) Wheeled Walker Misc See Rx Instructions .MEDSUPPLY Qty: 1 0RF Rx Instructions: As directed amoxicillin 500 mg tablet 2,000 mg PO ONCE Qty: 4 3RF Rx Instructions: 4 tabs 1 hour prior to procedure levothyroxine 88 mcg capsule 88 mcg PO QAM meloxicam 15 mg tablet 15 mg PO QAM ascorbic acid (vitamin C) [Vitamin C] 500 mg Tablet 500 mg PO QAM Admission Data Admit Date/Time: 01/05/23 09:18 Attending Provider: Rigo Desai Admit Provider: Rigo Desai Primary Care Provider: Blake Kumari
[2023-01-06] MEDS ORDERED: MULTIVITAMIN TAB PO SCH (09:00)
== END 2023-01-06 10:50 | disposition home or self-care (01) ==
LOC: ASU 06:28 → 3E 06:28